=== PATIENT | male | born 1940 | race Caucasian/White ===

== ENCOUNTER 2017-07-11 15:15 | Emergency (ER) | payer MEDICARE, OTHER ==
[2017-07-11 15:38] VITALS: BP 162/78
[2017-07-11 16:23] LABS: CHLORIDE,CL 105 mmol/L (98-107); SODIUM,NA 142 mmol/L (136-145)
[2017-07-11] MEDS ORDERED: Sodium Chloride 0.9% 1,000 ML IV ONE (16:23)
[2017-07-11] MEDS ORDERED: Sodium Chloride 0.9% 10 ML Syringe FLUSH PRN (16:23)
[2017-07-11] MEDS ORDERED: HYDROmorphone 1 MG/ML Syringe IVPUSH ONE (16:24)
[2017-07-11] MEDS ORDERED: Sodium Phosphate,Monobasic/Sodium Phosphate,Dibasic Enema 133 ML Bottle RECTAL ONE (17:31)
--- NOTE | 2017-07-14 08:13 | ER ---
Date of Service: 07/11/2017 SUBJECTIVE: Brigido presents to the emergency room with complaints of lower abdominal pain. He states that he has had issues with constipation in the past. He states he is not experiencing any fever or chills. Denies any chest pain or shortness of breath. The patient states that he has not had a bowel movement for several days. He states that his last bowel movement was "hard" but denies any melena, hematochezia, hematemesis. He states that he has had to take MiraLax and stool softeners in the past. He describes his discomfort as diffuse in nature and states that it does not localize. PAST MEDICAL HISTORY: 1. Hypertension. 2. Dyslipidemia. 3. Recurrent bronchitis. 4. Sleep apnea. 5. Chronic constipation. 6. History of colon resection secondary to colon cancer. 7. Prostate cancer. MEDICATIONS: 1. Lipitor. 2. Torsemide. 3. Senna Plus. 4. Cetirizine. 5. Coreg. 6. Klor-Con. 7. Cozaar. 8. Aspirin. 9. Multivitamin. ALLERGIES: Oxycodone. REVIEW OF SYSTEMS: Denies any fever, chills. PHYSICAL EXAMINATION: HEENT: No sore throat, rhinorrhea, congestion. Respiratory: No shortness breath. Cardiac: Denies any substernal chest pain. No jaw, arm, neck, or back pain. GI: Diffusely tender in the lower abdomen. There are no masses or hepatosplenomegaly noted. Extremities: Without edema. Neurologic: The patient is alert, oriented and answers all questions appropriately. LABORATORY DATA: WBC 7.4, hemoglobin 13.2, platelets are 211. Coag: PT is 10.0, INR is 0.9, PTT is 24.3. Chemistry: Sodium is 142, potassium is 4.0, chloride is 105, bicarb is 31, BUN is 11, creatinine is 1.2. GFR is 59, glucose is 130, lactic acid is 1.4, calcium is 9.2, corrected calcium is 9.44. Total bilirubin is 0.3, AST is 21, ALT is 36, alkaline phosphatase is 97. C-reactive protein is less than 0.2. Urinalysis was obtained and for the most part within normal limits. IMAGING STUDIES: Flat and upright abdominal x-ray was obtained. Did have evidence of a large amount of stool throughout the entirety of his colon. EMERGENCY ROOM COURSE: The patient was given a Fleet enema with some results. He stated that he was feeling somewhat better at time of discharge. ASSESSMENT: Acute on chronic constipation. PLAN: The patient will be discharged. He does have mag citrate at home and he should consume half a bottle once he gets home. He is to return to the emergency room if he is unable to void, if he has any worsening abdominal pain, if he has any chest pain, shortness of breath or other worrisome signs or symptoms. All questions were answered. MWK: 07/14/2017 06:04:37 MODL: 07/14/2017 06:28:54 /[id number]
== END 2017-07-11 17:50 | disposition home or self-care (01) ==
LOC: VM.ED 15:15
DX: K59.09 Other constipation (principal); I10 Essential (primary) hypertension; E78.5 Hyperlipidemia, unspecified; Z88.5 Allergy status to narcotic agent; Z85.46 Personal history of malignant neoplasm of prostate
CPT/HCPCS: 36415; 74020; 80053; 81001; 82150; 83605; 83690; 85025; 85610; 85730; 86140; 96361; 96374; 99284; A9270; J1170; J7030

== ENCOUNTER 2017-07-12 04:58 | Emergency (ER) | payer MEDICARE, OTHER ==
[2017-07-12] MEDS ORDERED: Iopamidol 612 MG/ML 100 ML Bottle IVPUSH ONE (05:13)
[2017-07-12] MEDS ORDERED: Sodium Chloride 0.9% 100 ML IV SCH (05:13)
[2017-07-12] MEDS ORDERED: Sodium Chloride 0.9% 1,000 ML IV ONE (05:14)
[2017-07-12] MEDS ORDERED: Sodium Chloride 0.9% 10 ML Syringe FLUSH PRN (05:14)
[2017-07-12] MEDS ORDERED: Ondansetron 4 MG/2 ML SDV IVPUSH ONE (05:15)
[2017-07-12] MEDS ORDERED: Pantoprazole 40 MG Vial IVPUSH ONE (05:15)
[2017-07-12] MEDS ORDERED: HYDROmorphone 1 MG/ML Syringe IVPUSH ONE (05:15)
[2017-07-12] MEDS ORDERED: Metoclopramide 10 MG/2 ML SDV IVPUSH ONE (05:16)
--- NOTE | 2017-07-12 05:23 | EDM.PDOC ---
ED HPI GENERAL MEDICAL PROBLEM - General Chief Complaint: Abdominal Pain Stated Complaint: Abdominal pain, vomiting Time Seen by Provider: 07/12/17 05:09 Source of Information: Reports: Patient, Family, Old Records, RN, RN Notes Reviewed History Limitations: Reports: No Limitations - History of Present Illness INITIAL COMMENTS - FREE TEXT/NARRATIVE: Patient presents to the emergency room at [facility] complaining of severe bilateral lower abdominal pain. The patient was seen in this emergency room about 12 hours ago and was diagnosed with constipation with similar symptoms. The patient states that the pain has progressively gotten worse and now he has started to vomit. The patient states that his vomitus smelled like feces. The patient denies any urinary symptoms. The patient denies any fever or chills. The patient states the pain is in the entire lower abdomen and it is sharp and stabbing and throbbing. No radiation of the pain. Patient states his abdomen feels very distended. 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: Other (see below) (Citroma; MiraLax) abdomen Pain Score (Numeric/FACES): 4 - Related Data Allergies Allergy/AdvReac Type Severity Reaction Status Date / Time oxycodone AdvReac Cannot Verified 07/12/17 05:53 Remember Home Meds: Home Meds Albuterol [Proair HFA] 2 puff INH Q4HR PRN 01/16/16 [History] Multivitamin [Multi-Vitamin Daily] 1 tab PO DAILY 01/16/16 [History] Sennosides/Docusate Sodium [Senokot-S Tablet] 1 tab PO DAILY 01/16/16 [History] Simvastatin [Simvastatin] 20 mg PO BEDTIME 01/16/16 [History] Carvedilol [Coreg] 3.125 mg PO BID 05/13/16 [History] Losartan [Cozaar] 25 mg PO DAILY 05/13/16 [History] Potassium Chloride [Klor-Con 10] 20 meq PO BIDMEALS 05/13/16 [History] Torsemide 20 mg PO DAILY 05/13/16 [History] Aspirin [Halfprin] 81 mg PO BRK 07/14/16 [History] Wheat Dextrin [Benefiber] 1 each PO BID 07/14/16 [History] Cetirizine [ZyrTEC] 10 mg PO DAILY 08/31/16 [History] atorvaSTATin [Lipitor] 10 mg PO BEDTIME 07/11/17 [History] Past Medical History HEENT History: Reports: Cataract Cardiovascular History: Reports: High Cholesterol, Hypertension Other Cardiovascular History: ELECTROPHYSIOLOGY EVALUATION WITH ABLATION. SVT ( SUPRAVENTRICULAR TACHYCARDIA) CARDIOVERSION Respiratory History: Reports: Bronchitis, Recurrent, Sleep Apnea Gastrointestinal History: Reports: Chronic Constipation Genitourinary History: Reports: Prostate Disorder Musculoskeletal History: Reports: None Neurological History: Reports: None Psychiatric History: Reports: None Endocrine/Metabolic History: Reports: None Hematologic History: Reports: None Immunologic History: Reports: None Oncologic (Cancer) History: Reports: Prostate Other Oncologic History: RECTAL Dermatologic History: Reports: None - Past Surgical History Head Surgeries/Procedures: Reports: None HEENT Surgical History: Reports: Cataract Surgery, Tonsillectomy Neurological Surgical History: Reports: None Other Musculoskeletal Surgeries/Procedures:: FRACTURE SURGERY (HAND) Oncologic Surgical History: Reports: Other (See Below) Social & Family History - Tobacco Use Smoking Status *Q: Never Smoker Used Tobacco, but Quit: Yes Month Tobacco Last Used: 2012 Second Hand Smoke Exposure: No - Caffeine Use Caffeine Use: Reports: Coffee - Alcohol Use Days Per Week of Alcohol Use: 0 Number of Drinks Per Day: 0 Total Drinks Per Week: 0 - Recreational Drug Use Recreational Drug Use: No Drug Use in Last 12 Months: No ED ROS GENERAL - Review of Systems Review Of Systems: See Below Constitutional: Reports: Decreased Appetite. Denies: Fever, Chills, Weakness Respiratory: Denies: Shortness of Breath, Cough Cardiovascular: Denies: Chest Pain, Palpitations GI/Abdominal: Reports: Abdominal Pain, Constipation, Nausea, Vomiting. Denies: Black Stool, Bloody Stool, Diarrhea, Mucous in Stool Skin: Reports: No Symptoms Neurological: Reports: No Symptoms ED EXAM, GI/ABD - Physical Exam Exam: See Below Exam Limited By: No Limitations General Appearance: Alert, Moderate Distress, Obese Respiratory/Chest: No: No Respiratory Distress, Lungs Clear, Normal Breath Sounds Cardiovascular: No: Normal Peripheral Pulses, Regular Rate, Rhythm GI/Abdominal Exam: Distended, Guarding, Rigid, Abnormal Bowel Sounds (Hypoactive ) Neurological: Alert, Oriented Skin Exam: Warm, Dry, Intact, Normal Color, No Rash Course - Vital Signs Last Recorded V/S: Last Vital Signs Temp 37.4 C 07/12/17 05:00 Pulse 84 07/12/17 05:00 Resp 16 07/12/17 05:00 BP 154/85 H 07/12/17 05:00 Pulse Ox 94 L 07/12/17 05:00 - Orders/Labs/Meds Orders: Active Orders 24 hr Category Date Time Status Abdomen Pelvis w Cont [CT] Stat Exams 07/12/17 05:13 Taken Sodium Chloride 0.9% [Saline Flush] Med 07/12/17 05:14 Active 10 ml FLUSH ASDIRECTED PRN Peripheral IV Insertion Adult [OM.PC] Routine Oth 07/12/17 05:14 Ordered Medication Orders Sodium Chloride (Saline Flush) 10 ml FLUSH ASDIRECTED PRN PRN Reason: Keep Vein Open Labs: Laboratory Tests 07/12/17 07/12/17 07/12/17 Range/Units 05:40 05:40 05:40 WBC 10.5 H (4.0-10.0) x10^3/uL RBC 4.14 L (4.5-6.0) x10^6/uL Hgb 14.0 (14.0-18.0) g/dL Hct 41.4 (40.0-52.0) % MCV 100.0 H (78.0-93.0) fL MCH 33.8 H (26.0-32.0) pg MCHC 33.8 (32.0-36.0) g/dL RDW Coeff of Steffany 13.0 (10.0-15.0) % Plt Count 234 (130-400) x10^3/uL Neut % (Auto) 76.8 (50.0-80.0) % Lymph % (Auto) 16.3 L (25.0-50.0) % Ciales % (Auto) 6.4 (2.0-11.0) % Eos % (Auto) 0.2 (0.0-4.0) % Baso % (Auto) 0.3 (0.2-1.2) % Sodium 143 (136-145) mmol/L Potassium 3.1 L (3.5-5.1) mmol/L Chloride 105 (98-107) mmol/L Carbon Dioxide 29 (21-32) mmol/L BUN 14 (7-18) mg/dL Creatinine 1.1 (0.70-1.30) mg/dL Est Cr Clr Drug Dosing TNP Estimated GFR (MDRD) > 60 Glucose 173 H (74-106) mg/dL Lactic Acid 2.1 H (0.4-2.0) mmol/L Calcium 9.0 (8.5-10.1) mg/dL C-Reactive Protein (<=0.9) mg/dL Amylase 42 (25-115) U/L Lipase 139 (73-393) U/L 07/12/17 Range/Units 05:40 WBC (4.0-10.0) x10^3/uL RBC (4.5-6.0) x10^6/uL Hgb (14.0-18.0) g/dL Hct (40.0-52.0) % MCV (78.0-93.0) fL MCH (26.0-32.0) pg MCHC (32.0-36.0) g/dL RDW Coeff of Steffany (10.0-15.0) % Plt Count (130-400) x10^3/uL Neut % (Auto) (50.0-80.0) % Lymph % (Auto) (25.0-50.0) % Cial[place] % (Auto) (2.0-11.0) % Eos % (Auto) (0.0-4.0) % Baso % (Auto) (0.2-1.2) % Sodium (136-145) mmol/L Potassium (3.5-5.1) mmol/L Chloride (98-107) mmol/L Carbon Dioxide (21-32) mmol/L BUN (7-18) mg/dL Creatinine (0.70-1.30) mg/dL Est Cr Clr Drug Dosing Estimated GFR (MDRD) Glucose (74-106) mg/dL Lactic Acid (0.4-2.0) mmol/L Calcium (8.5-10.1) mg/dL C-Reactive Protein 0.4 (<=0.9) mg/dL Amylase (25-115) U/L Lipase (73-393) U/L Meds: Medications Generic Name Dose Route Start Last Admin Trade Name Freq PRN Reason Stop Dose Admin Sodium Chloride 10 ml 07/12/17 05:14 Saline Flush FLUSH ASDIRECTED PRN Keep Vein Open Discontinued Medications Generic Name Dose Route Start Last Admin Trade Name Freq PRN Reason Stop Dose Admin Hydromorphone HCl 1 mg 07/12/17 05:15 07/12/17 05:23 Dilaudid IVPUSH 07/12/17 05:16 1 mg ONETIME ONE Administration Sodium Chloride 1,000 mls @ 999 mls/hr 07/12/17 05:14 Normal Saline IV 07/12/17 06:14 ONETIME ONE Metoclopramide HCl 10 mg 07/12/17 05:16 07/12/17 05:27 Reglan IVPUSH 07/12/17 05:17 10 mg ONETIME ONE Administration Ondansetron HCl 4 mg 07/12/17 05:15 07/12/17 05:25 Zofran IVPUSH 07/12/17 05:16 4 mg ONETIME ONE Administration Pantoprazole Sodium 40 mg 07/12/17 05:15 07/12/17 05:32 Protonix Iv IVPUSH 07/12/17 05:16 40 mg ONETIME ONE Administration Departure - Departure Time of Disposition: 07:06 Disposition: DC/Tfer to Acute Hospital 02 Condition: Fair Clinical Impression: Small bowel obstruction - Discharge Information Forms: Interfacility Transfer [facility] ED Communication - ED Communication Date/Time Date: 07/12/17 Time Called: 07:05 - Discussed Case With (1) Discussed Case With (1): Admitting Provider (Dr. Guadarrama, Surgeon) - Conversation Summary Admitting Provider Agreed to Patient's Admission: Yes Patient Aware of Amendments fo Care Plan: Yes Summary Comment: Patient will be transferred to [facility]. Dr. Guadarrama accepted patient. Report given. Patient will be transferred ALS ground. - Problem List Review Problem List Initiated/Reviewed/Updated: Yes - My Orders Last 24 Hours: My Active Orders 07/12/17 05:13 Abdomen Pelvis w Cont [CT] Stat 07/12/17 05:14 Sodium Chloride 0.9% [Saline Flush] 10 ml FLUSH ASDIRECTED PRN Peripheral IV Insertion Adult [OM.PC] Routine - Assessment/Plan Last 24 Hours: My Active Orders 07/12/17 05:13 Abdomen Pelvis w Cont [CT] Stat 07/12/17 05:14 Sodium Chloride 0.9% [Saline Flush] 10 ml FLUSH ASDIRECTED PRN Peripheral IV Insertion Adult [OM.PC] Routine
[2017-07-12 06:05] LABS: CHLORIDE,CL 105 mmol/L (98-107); SODIUM,NA 143 mmol/L (136-145)
[2017-07-12] MEDS ORDERED: Morphine 2 MG/ML Syringe IVPUSH ONE (07:10)
[2017-07-12 07:24] VITALS: BP 143/74
[2017-07-13] MEDS ORDERED: Iopamidol 612 MG/ML 100 ML Bottle IVPUSH ONE (08:35)
[2017-07-13] MEDS ORDERED: Sodium Chloride 0.9% 100 ML IV SCH (08:45)
== END 2017-07-12 08:00 | disposition short-term general hospital (02) ==
LOC: VM.ED 04:58
DX: K56.60 Unspecified intestinal obstruction (principal); I10 Essential (primary) hypertension; E78.00 Pure hypercholesterolemia, unspecified; Z88.5 Allergy status to narcotic agent; Z79.82 Long term (current) use of aspirin; Z79.899 Other long term (current) drug therapy; Z90.89 Acquired absence of other organs
CPT/HCPCS: 36415; 74177; 80048; 82150; 83605; 83690; 85025; 86140; 96361; 96374; 96375; 99285; C9113; J1170; J2270; J2405; J2765; J7030; J7050; Q9967; 99284-GF

== ENCOUNTER 2022-04-06 17:34 | Emergency (ER) | payer MEDICARE, OTHER ==
[2022-04-06] MEDS ORDERED: Sodium Chloride 0.9% 10 ML Syringe FLUSH PRN (17:46)
[2022-04-06 18:40] VITALS: BP 91/56; PULSE 105
[2022-04-06 18:40] LABS: PTT,PARTIAL THROMBOPLSTIN TIME 29.4 SEC (20.5-30.9)
[2022-04-06 18:45] LABS: CHLORIDE,CL 97 mmol/L (98-107); SODIUM,NA 139 mmol/L (136-145)
[2022-04-06 18:47] LABS: ANION GAP 17.9 mmol/L (5-15)
[2022-04-06] MEDS ORDERED: cefTRIAXone 2 GM Vial IVPUSH ONE (18:50)
[2022-04-06] MEDS ORDERED: Azithromycin 500 MG in Sodium Chloride 0.9% 250 ML IV ONE (18:51)
[2022-04-06 19:12] LABS: CORONAVIRUS COVID-19 NAA NEGATIVE (NEGATIVE); RESPIRATORY SYNCYTIAL VIR NAA NEGATIVE (NEGATIVE)
[2022-04-06] MEDS ORDERED: Ondansetron 4 MG/2 ML SDV IVPUSH ONE (20:12)
[2022-04-06] MEDS ORDERED: Sodium Chloride 0.9% 1,000 ML IV SCH (20:15)
[2022-04-06] MEDS ORDERED: Lactated Ringers 1,000 ML IV ONE (20:45)
== END 2022-04-06 21:10 | disposition short-term general hospital (02) ==
LOC: VM.ED 17:34
DX: J18.9 Pneumonia, unspecified organism (principal); N18.6 End stage renal disease; E78.00 Pure hypercholesterolemia, unspecified; I11.0 Hypertensive heart disease with heart failure; I50.9 Heart failure, unspecified; E11.9 Type 2 diabetes mellitus without complications; E66.9 Obesity, unspecified; Z68.30 Body mass index [BMI] 30.0-30.9, adult; Z79.899 Other long term (current) drug therapy; Z79.82 Long term (current) use of aspirin; Z90.49 Acquired absence of other specified parts of digestive tract; Z88.5 Allergy status to narcotic agent; Z88.2 Allergy status to sulfonamides; Z88.8 Allergy status to other drugs, medicaments and biological substances; Z20.822 Contact with and (suspected) exposure to COVID-19
CPT/HCPCS: 0241U; 36415; 71045; 80053; 81001; 83605; 83735; 84100; 84484; 85025; 85610; 85730; 87040; 96365; 96375; 99284; 99285-25; J0456; J0696; J2405; J7050; J7120

== ENCOUNTER 2022-05-17 18:04 | Inpatient (IN) | payer MEDICARE, OTHER ==
[2022-05-17] MEDS ORDERED: Sodium Chloride 0.9% 10 ML Syringe FLUSH PRN (18:07)
[2022-05-17 19:43] LABS: CHLORIDE,CL 93 mmol/L (98-107); SODIUM,NA 133 mmol/L (136-145)
[2022-05-17 19:48] LABS: ANION GAP 17.7 mmol/L (5-15); ESTIMATED GFR 12 mL/min (>=60)
[2022-05-17] MEDS ORDERED: cefTRIAXone 1 GM, Lidocaine 1% 2.1 ML IM ONE ×2 (20:00)
[2022-05-17] MEDS ORDERED: Albuterol/Ipratropium 3.0-0.5 MG/3 ML Neb Soln NEB ONE (20:00)
[2022-05-17] MEDS ORDERED: Acetaminophen 325 MG Tab PO ONE (20:02)
[2022-05-17] MEDS ORDERED: cefTRIAXone 1 GM Vial IVPUSH ONE (20:03)
[2022-05-17] MEDS: Azithromycin 500 MG in Sodium Chloride 0.9% 250 ML IV SCH (22:30)
[2022-05-17] MEDS ORDERED: Flumazenil 0.1 MG/ML 5 ML MDV IVPUSH PRN (23:04)
[2022-05-17] MEDS ORDERED: LORazepam 2 MG/ML SDV IVPUSH ONE (23:04)
[2022-05-18] MEDS ORDERED: Albuterol HFA 18 Gm Inhaler INH PRN (07:28)
[2022-05-18] MEDS ORDERED: Aspirin 81 MG Tab.EC PO SCH (08:00)
[2022-05-18] MEDS: Azithromycin 500 MG in Sodium Chloride 0.9% 250 ML IV SCH (08:16)
[2022-05-18] MEDS ORDERED: Bumetanide 1 MG Tab PO SCH (09:00)
[2022-05-18] MEDS ORDERED: Metoprolol Succinate 50 MG Tab.ER PO SCH (09:00)
[2022-05-18] MEDS ORDERED: Non-Formulary Medication 1 Each (Multivitamin [Multi-Vitamin Daily] 1 EACH Tablet) PO SCH (09:00)
[2022-05-18] MEDS ORDERED: Sevelamer Carbonate 800 MG Tab PO SCH (09:00)
[2022-05-18] MEDS ORDERED: Non-Formulary Medication 1 Each (Rivaroxaban [Xarelto] 20 MG Tablet) PO SCH (09:00)
[2022-05-18] MEDS ORDERED: Non-Formulary Medication 1 Each (Cholecalciferol (Vitamin D3) [Vitamin D3] 400 UNIT Capsul PO SCH (09:00)
[2022-05-18] MEDS ORDERED: cefTRIAXone 1 GM Vial IVPUSH SCH (09:00)
[2022-05-18] MEDS ORDERED: [UNRECOGNIZED DRUG - REMARK] PO SCH (09:00)
[2022-05-18] MEDS ORDERED: Non-Formulary Medication 1 Each (Sitagliptin Phosphate [Januvia] 25 MG Tablet) PO SCH (09:00)
[2022-05-18 11:14] VITALS: BP 131/78; PULSE 75
[2022-05-18] MEDS ORDERED: atorvaSTATin 10 MG Tab PO SCH (21:00)
== END 2022-05-18 11:17 | disposition short-term general hospital (02) | DRG 177 ==
LOC: VM.ED 18:04 → VM.MS 21:29
PROVIDERS: ADMIT Nurse Practitioner Family; ATTEND Family Medicine
DX: U07.1 COVID-19 (principal); I50.23 Acute on chronic systolic (congestive) heart failure; J81.0 Acute pulmonary edema; R53.1 Weakness; J12.82 Pneumonia due to coronavirus disease 2019; I15.0 Renovascular hypertension; E11.9 Type 2 diabetes mellitus without complications; I11.0 Hypertensive heart disease with heart failure; N18.5 Chronic kidney disease, stage 5; I13.0 Hypertensive heart and chronic kidney disease with heart failure and stage 1 through stage 4 chronic kidney disease, or unspecified chronic kidney disease; G47.33 Obstructive sleep apnea (adult) (pediatric); E11.22 Type 2 diabetes mellitus with diabetic chronic kidney disease; E78.00 Pure hypercholesterolemia, unspecified; K59.09 Other constipation; N42.9 Disorder of prostate, unspecified; E66.9 Obesity, unspecified; Z85.048 Personal history of other malignant neoplasm of rectum, rectosigmoid junction, and anus; Z98.49 Cataract extraction status, unspecified eye; Z90.89 Acquired absence of other organs; Z98.890 Other specified postprocedural states; Z79.4 Long term (current) use of insulin; Z88.2 Allergy status to sulfonamides; Z88.5 Allergy status to narcotic agent; Z88.8 Allergy status to other drugs, medicaments and biological substances; Z79.82 Long term (current) use of aspirin; Z79.01 Long term (current) use of anticoagulants; Z79.899 Other long term (current) drug therapy; Z87.891 Personal history of nicotine dependence; Z90.49 Acquired absence of other specified parts of digestive tract
CPT/HCPCS: 36415; 71045; 80053; 83605; 83880; 84484; 85025; 85610; 87040 ×2; 93005; A9270; J0696; 83735; 84100; 94760; 96374; 99285-25; J0456; J2060; J7050; J7620-GY

== ENCOUNTER 2022-08-14 17:06 | Emergency (ER) | payer MEDICARE, OTHER, MEDICAID ==
[2022-08-14 17:16] VITALS: BP 107/48; PULSE 105
[2022-08-14] MEDS ORDERED: Sodium Chloride 0.9% 10 ML Syringe FLUSH PRN (17:25)
[2022-08-14] MEDS ORDERED: cefTRIAXone 1 GM in Sodium Chloride 0.9% 100 ML IV ONE (17:25)
[2022-08-14] MEDS: cefTRIAXone 1 GM Vial IVPUSH ONE (17:53)
[2022-08-14 18:14] LABS: CHLORIDE,CL 96 mmol/L (98-107); SODIUM,NA 137 mmol/L (136-145)
[2022-08-14 18:17] LABS: ANION GAP 14.4 mmol/L (5-15)
[2022-08-14 18:19] LABS: ESTIMATED GFR 16 mL/min (>=60)
[2022-08-14] MEDS: Sodium Chloride 0.9% 1,000 ML IV ONE (19:51)
[2022-08-14] MEDS: Acetaminophen 325 MG Tab PO ONE (19:57)
[2022-08-14] MEDS: Sodium Chloride 0.9% 1,000 ML IV SCH (22:15)
== END 2022-08-14 22:53 | disposition short-term general hospital (02) ==
LOC: VM.ED 17:06
DX: A41.9 Sepsis, unspecified organism (principal); I11.0 Hypertensive heart disease with heart failure; I50.9 Heart failure, unspecified; E11.9 Type 2 diabetes mellitus without complications; E66.9 Obesity, unspecified; Z68.30 Body mass index [BMI] 30.0-30.9, adult; Z88.5 Allergy status to narcotic agent; Z88.1 Allergy status to other antibiotic agents; Z88.8 Allergy status to other drugs, medicaments and biological substances; Z79.82 Long term (current) use of aspirin; Z79.899 Other long term (current) drug therapy; Z86.16 Personal history of COVID-19
CPT/HCPCS: 36415; 80053; 81001; 83605; 83880; 85025; 86140; 87040; 96361; 96365; 96375; 99285; A9270; J0696; J3370; J7030; J7050